=== PATIENT | female | born 1935 | race Caucasian/White ===

== ENCOUNTER 2020-08-01 10:56 | Emergency (ER) | payer MEDICARE, BC, SELFPAY ==
[2020-08-01 10:59] VITALS: BP 189/80; PULSE 108; RESP 14; TEMP 36.7; O2SAT 99; BMI 27.3
--- NOTE | 2020-08-01 11:29 | EKG12_ITS ---
Test Reason : OVERDOSE Blood Pressure : / mmHG Vent. Rate : 088 BPM Atrial Rate : 088 BPM P-R Int : 190 ms QRS Dur : 090 ms QT Int : 376 ms P-R-T Axes : 048 013 080 degrees QTc Int : 454 ms Sinus rhythm with Premature supraventricular complexes Otherwise normal ECG Confirmed by LAINA MOLINA, JUAN ([id number]), subeditor ANDREW REYEZ ([id number]) on 08/03/2020 12:46:36 PM Referred By: ABDOUL Confirmed By:JUAN MARINA MD
--- NOTE | 2020-08-01 11:32 | NURSING ---
NO OLD EKGS
[2020-08-01 13:16] LABS: Absolute Lymphocyte Count 1.17 X10^3/uL (0.83-4.51); Absolute Neutrophil Count 4.8 X10^3/uL (2.0-7.7); Basophil# 0.05 X10^3/uL; Basophil% 0.7 % (0-1); Eosinophils% 1.5 % (0-5); Hematocrit 40.1 % (37-47); Lymphocyte # 1.17 X10^3/ul (0.83-4.51); Lymphocyte % 17.2 % (19-41); Mean Corp Hgb Conc 32.4 g/dL (32-36); Mean Corpuscular Hgb 30.3 pg (27.0-32.0); Mean Corpuscular Volume 93.5 fL (81-99); Mean Platelet Vol. 10.5 fl (6.2-12.0); Monocyte# 0.69 X10^3/uL; Monocyte% 10.1 % (0-10); NRBC Flagged by Analyzer 0 % (0-5); Neutrophil # 4.75 X10^3/uL (2.7-7.7); Neutrophil % 69.9 % (47-70); Platelet Count 228 K/mm3 (150-450); RBC Distribution Width CV 13.7 % (11.6-14.6); RBC Distribution Width SD 46.5 fl (35.1-43.9); Red Blood Count 4.29 M/mm3 (4.2-5.4); White Blood Count 6.8 K/mm3 (4.4-11.0)
[2020-08-01 13:25] LABS: Amphetamine Urine VISTA NEGATIVE (<1000 ng/mL); Barbiturate Urine VISTA NEGATIVE (< 200 ng/mL); Benzodiazepine Urine VISTA NEGATIVE (< 200 ng/mL); Cocaine Urine VISTA NEGATIVE (< 300 ng/mL); Ecstacy Urine VISTA NEGATIVE (< 500 ng/mL); Methadone Urine VISTA NEGATIVE (< 300 ng/mL); PCP Urine VISTA NEGATIVE (< 25 ng/mL); THC Urine VISTA NEGATIVE (< 50 ng/mL); Vista UDS pH Range 7
[2020-08-01 13:31] LABS: Alcohol, Blood (Medical)-Serum < 3.0 mg/dL
[2020-08-01 13:35] LABS: AST(SGOT) 30 U/L (15-37); Alanine Aminotransfer ALT/SGPT 29 U/L (13-56); Albumin, Serum 3.9 g/dL (3.2-5.0); Alkaline Phosphatase 104 U/L (45-117); Anion Gap 6 (5-15); BUN 42 mg/dL (7-18); BUN/Creat Ratio 19.1 RATIO (10-20); Bilirubin, Direct 0.23 mg/dL (0.00-0.30); Chloride 103 mmol/L (98-107); EST Glomerular Filtration Rate 23 mL/min (>60); Est Glom Filt Rate - Afr Amer 27 mL/min (>60); Estimated Creatinine Clearance 14.52 ml/min; Globulin 3.7 g/dL (2.2-4.2); Glucose 95 mg/dL (74-106); Potassium 4.4 mmol/L (3.5-5.1); Protein, Total 7.6 g/dL (6.4-8.2); Sodium Level 142 mmol/L (136-145)
[2020-08-01 14:10] LABS: Acetaminophen (Tylenol) Level < 2.0 ug/mL (10.0-30.0); Salicylate < 1.7 mg/dL (2.8-20.0)
--- NOTE | 2020-08-01 15:02 | EDS_ITS ---
HPI History of Present Illness Chief Complaint: Overdose Informant: patient Narrative Narrative: Patient presenting with concern for overdose. Patient was sleeping in the room next to her family and she had a run medication in there. It appears that she had taken 3 days worth of her home meds overnight. She states that she woke up at 2 AM and she cannot recall if she took medication then or if it was this morning. She does have dementia. To the best that her family can tell a lady she is located on his about 8:00 AM. These medications include hydralazine, her statin, enalapril. There were no narcotics or benzodiazepines. PFSH PFS Allergy/AdvReac Type Severity Reaction Status Date / Time No Known Allergies Allergy Verified 08/01/20 10:58 Social History Smoking Status: Never smoker ROS ROS ED Constitutional Constitutional ED: Denies chills, fever(s) or sweats Eyes Eyes: Denies blurry vision or change in vision ENT ENT ED: Denies ear pain or sore throat Cardiovascular Cardiovascular: Denies chest pain, palpitations or racing heartbeat Respiratory/Chest Respiratory/Chest: Denies cough, dyspnea or sputum Gastrointestinal Gastrointestinal: Denies abdominal pain, constipation, diarrhea, nausea or vomiting Genitourinary Genitourinary ED: Denies dysuria, hematuria or urinary frequency Musculoskeletal Musculoskeletal: Denies arthralgias, myalgias or neck pain Integumentary Denies abscess, Abrasions or rash Neurologic Neurologic: Denies headache(s), paresthesias or weakness Psychiatric Psychiatric: Denies anxiety, depression, suicidal ideation or suicidal thoughts Endocrine Endocrinology: Denies polydipsia or polyuria EXAM Physical Exam Const Vital Signs: 08/01/20 10:59 Temperature 98.1 F Temperature Source Temporal Pulse Rate 108 H Respiratory Rate 14 Blood Pressure 189/80 H Blood Pressure Mean 116 Pulse Ox 99 Oxygen Delivery Method Room Air Positive well nourished, alert and no apparent distress General Appearance ED: Negative for pallor HEENT Reports normocephalic, head/scalp atraumatic and moist mucous membranes Eyes PERRL and EOMs intact bilaterally Neck no lymphadenopathy and supple Chest Wall inspection of chest normal and palpation of chest normal Resp normal respiratory effort and clear to auscultation bilaterally Auscultation: Negative for rales, rhonchi or wheezes Cardio regular rate and regular rhythm GI normal to inspection, nondistended, normoactive bowel sounds and non-distended Auscultation: normoactive bowel sounds Palpation: soft Narrative: Deferred Extremity normal to inspection General Extremety ED: Yes edema and tenderness General Extremity: edema Neuro oriented x3 and CN's II-XII intact bilaterally Sensorium / Orientation: alert Motor Exam: strength 5/5 throughout Psych mental status grossly normal Attitude: No agitated Skin no rashes or lesions noted and no wounds General Skin Exam: Negative for jaundice or pallor MDM MDM MDM Narrative Medical decision making narrative: On patient arrival she was assessed. I did take her list of medications and called poison control. They stated that if the later she would have taken all of her medications was 8:00 she would only need to be monitored for 6 hours post the time of ingestion. She has been monitored in the ED and has actually been a little hypertensive. She has not had any altered mental status. Patient has no leukocytosis. Her hemoglobin hematocrit are stable. Creatinine is 2.20. Patient's family states that she has known stage IV kidney disease. They feel this is her baseline. Urine drug abuse screen is negative. EtOH negative. Salicylates and acetaminophen negative. EtOH negative. I feel at this time since she has been monitored and her blood work is normal for her she can be discharged home in stable condition. Impression: 1. Accidental ingestion Lab Data Attestation: I reviewed the patient's lab results. Labs: Laboratory Results - last 24 hr 08/01/20 08/01/20 08/01/20 13:00 13:05 13:05 WBC 6.8 RBC 4.29 Hgb 13.0 Hct 40.1 MCV 93.5 MCH 30.3 MCHC 32.4 RDW Std Deviation 46.5 H RDW Coeff of Dung 13.7 Plt Count 228 MPV 10.5 Immature Gran % (Auto) 0.600 Neut % (Auto) 69.9 Lymph % (Auto) 17.2 L [place] % (Auto) 10.1 H Eos % (Auto) 1.5 Baso % (Auto) 0.7 Absolute Neuts (auto) 4.8 Absolute Lymphs (auto) 1.17 Nucleated RBC % 0 Sodium 142 Potassium 4.4 Chloride 103 Carbon Dioxide 33.0 H Anion Gap 6 BUN 42 H Creatinine 2.20 H Estim Creat Clear Calc 14.52 Est GFR (MDRD) Af Amer 27 L Est GFR (MDRD) Non-Af 23 L BUN/Creatinine Ratio 19.1 Glucose 95 Calcium 10.0 Total Bilirubin 0.70 Direct Bilirubin 0.23 AST 30 ALT 29 Alkaline Phosphatase 104 Total Protein 7.6 Albumin 3.9 Globulin 3.7 Salicylates Urine Opiates Screen NEGATIVE Urine Methadone Screen NEGATIVE Acetaminophen Ur Barbiturates Screen NEGATIVE Ur Phencyclidine Scrn NEGATIVE Ur Amphetamines Screen NEGATIVE U Methamphetamin-MDMA NEGATIVE U Benzodiazepines Scrn NEGATIVE Urine Cocaine Screen NEGATIVE U Cannabinoids Screen NEGATIVE Ur Drug Screen Comment Ethyl Alcohol 08/01/20 08/01/20 13:05 13:05 WBC RBC Hgb Hct MCV MCH MCHC RDW Std Deviation RDW Coeff of Dung Plt Count MPV Immature Gran % (Auto) Neut % (Auto) Lymph % (Auto) [place] % (Auto) Eos % (Auto) Baso % (Auto) Absolute Neuts (auto) Absolute Lymphs (auto) Nucleated RBC % Sodium Potassium Chloride Carbon Dioxide Anion Gap BUN Creatinine Estim Creat Clear Calc Est GFR (MDRD) Af Amer Est GFR (MDRD) Non-Af BUN/Creatinine Ratio Glucose Calcium Total Bilirubin Direct Bilirubin AST ALT Alkaline Phosphatase Total Protein Albumin Globulin Salicylates < 1.7 L Urine Opiates Screen Urine Methadone Screen Acetaminophen < 2.0 L Ur Barbiturates Screen Ur Phencyclidine Scrn Ur Amphetamines Screen U Methamphetamin-MDMA U Benzodiazepines Scrn Urine Cocaine Screen U Cannabinoids Screen Ur Drug Screen Comment Ethyl Alcohol < 3.0 Discharge Plan Triage Chief Complaint: Overdose ED Provider: Alfredito Contreras Dx/Rx/DC Orders Instructions: ED Accidental Ingestion ... Referrals: Juan Grant [Other] Disposition Disposition: Home, Self Care
[2020-08-01 15:18] VITALS: BP 157/49; PULSE 73; RESP 18; O2SAT 95
== END 2020-08-01 15:21 | disposition home or self-care (01) ==
PROVIDERS: Emergency Provider Student in an Organized Health Care Education/Training Program
DX: T46.5X1A Poisoning by other antihypertensive drugs, accidental (unintentional), initial encounter (principal); T46.4X1A Poisoning by angiotensin-converting-enzyme inhibitors, accidental (unintentional), initial encounter; Y92.9 Unspecified place or not applicable; F03.90 Unspecified dementia, unspecified severity, without behavioral disturbance, psychotic disturbance, mood disturbance, and anxiety; I49.1 Atrial premature depolarization; Z79.899 Other long term (current) drug therapy
CPT/HCPCS: 80048; 80076; 80307; 80329; 82077; 85025; 93005; 99282; A4216; G0480